=== PATIENT | male | born 1990 | race Caucasian/White ===

== ENCOUNTER 2016-09-30 20:51 | Emergency (ER) | payer SELFPAY ==
[2016-09-30 21:04] VITALS: BP 128/84
--- NOTE | 2016-09-30 21:40 | UC ---
Abdominal Pain Male HPI - HPI Summary HPI Summary: 5 days of abd pain ---nausea/vomiting/ feels dehydrated - History of Current Complaint Hx Obtained From: Patient Onset/Duration: Sudden Onset, Lasting Days - 5, Still Present Timing: Constant Severity Initially: Moderate Severity Currently: Moderate Pain Intensity: 7 Pain Scale Used: 0-10 Numeric Location: Diffuse, Discrete At: RUQ Radiates: No Character: Colicy, Cramping Alleviating Factor(s): Nothing Associated Signs And Symptoms: Positive: Diaphoresis, Decreased Appetite, Nausea , Vomiting <Dyan Mendez - Last Filed: 09/30/16 21:35> <Lolis Hawkins - Last Filed: 10/01/16 09:42> - History of Current Complaint Chief Complaint: UCGU Stated Complaint: NAUSEA VOMITING HURTS TO VOID Time Seen by Provider: 09/30/16 21:22 - Allergies/Home Medications Allergies/Adverse Reactions: Allergies Allergy/AdvReac Type Severity Reaction Status Date / Time No Known Allergies Allergy Verified 09/30/16 21:59 PMH/Surg Hx/FS Hx/Imm Hx Previously Healthy: Yes - Surgical History Surgical History: None - Family History Known Family History: Positive: Diabetes - grandfather - Social History Occupation: Unemployed Lives: With Family Alcohol Use: None Substance Use Type: Marijuana Substance Use Comment - Amount & Last Used: weekly Smoking Status (MU): Heavy Every Day Tobacco Smoker Household Exposure Type: Cigarettes <Dyan Mendez - Last Filed: 09/30/16 21:35> Review of Systems Constitutional: Chills, Fatigue Skin: Negative Eyes: Negative ENT: Negative Respiratory: Negative Cardiovascular: Negative Gastrointestinal: Abdominal Pain, Vomiting, Nausea Genitourinary: Dysuria Motor: Negative Neurovascular: Negative Musculoskeletal: Negative Neurological: Negative Psychological: Negative All Other Systems Reviewed And Are Negative: Yes <Dyan Mendez - Last Filed: 09/30/16 21:35> Physical Exam Triage Information Reviewed: Yes Appearance: Well-Nourished, Ill-Appearing - pale clammy skin, Pain Distress Vital Signs: Initial Vital Signs Temp 98.4 F 09/30/16 21:01 Pulse 90 09/30/16 21:01 Resp 18 09/30/16 21:01 BP 128/84 09/30/16 21:01 Pulse Ox 99 09/30/16 21:01 Vital Signs Reviewed: Yes Eye Exam: Normal Eyes: Positive: Conjunctiva Clear ENT Exam: Normal ENT: Positive: Normal ENT inspection, Hearing grossly normal, Pharynx normal. Negative: Nasal congestion, Nasal drainage, Trismus, Muffled/hoarse voice Dental Exam: Normal Neck exam: Normal Neck: Positive: Supple, Nontender, No Lymphadenopathy Respiratory Exam: Normal Respiratory: Positive: Chest non-tender, Lungs clear, Normal breath sounds, No respiratory distress, No accessory muscle use Cardiovascular Exam: Normal Cardiovascular: Positive: RRR, No Murmur, Pulses Normal, Brisk Capillary Refill Abdominal Exam: Other Abdomen Description: Positive: No Organomegaly, Soft, Other: - positive [place] sign. Negative: CVA Tenderness (R), CVA Tenderness (L) Bowel Sounds: Positive: Present Musculoskeletal Exam: Normal Musculoskeletal: Positive: Strength Intact, ROM Intact, No Edema Neurological Exam: Normal Neurological: Positive: Alert, Muscle Tone Normal Psychological Exam: Normal Psychological: Positive: Normal Response To Family Skin Exam: Normal Skin: Positive: Other <Dyan Mendez - Last Filed: 09/30/16 21:35> Vital Signs: Initial Vital Signs Temp 98.4 F 09/30/16 21:01 Pulse 90 09/30/16 21:01 Resp 18 09/30/16 21:01 BP 128/84 09/30/16 21:01 Pulse Ox 99 09/30/16 21:01 <Lolis Hawkins - Last Filed: 10/01/16 09:42> Diagnostics - Laboratory Diagnostic Studies Completed/Ordered: urine +3 ketones, +2 Bili, +1 Protien <Dyan Mendez - Last Filed: 09/30/16 21:35> Abd Pain Male Course/Dx - Course Course Of Treatment: [place] [facility] [place] Differential Dx/Clinical Impression Differential Diagnosis/HQI/PQRI: Appendicitis, Gall Bladder Disease, Ischemic Bowel, Pancreatitis Provider Diagnoses: abd. Pain - Physician Notification/Consults Discussed Patient Care With: Hemanth Contreras Time Discussed With Above Provider: 21:30 Instructed by Provider To: Transfer <Dyan Mendez - Last Filed: 09/30/16 21:35> Discharge <Dyan Mendez - Last Filed: 09/30/16 21:35> <Lolis Hawkins - Last Filed: 10/01/16 09:42> - Discharge Plan Condition: Fair Disposition: AGAINST MEDICAL ADVICE Referrals: No Primary Care Phys,NOPCP [Primary Care Provider] - Attestation Statement User Type: Provider - I was available for consult. This patient was seen by the [facility]. The patient was not presented to, seen by, or examined by me. -Roe <Lolis Hawkins - Last Filed: 10/01/16 09:42>
== END 2016-09-30 21:37 | disposition left against medical advice (07) ==
LOC: UCEAST 20:51
DX: R10.9 Unspecified abdominal pain (principal); Z72.0 Tobacco use
CPT/HCPCS: 81003; 99212; G0463

== ENCOUNTER 2016-09-30 21:53 | Emergency (ER) | payer SELFPAY ==
[2016-09-30] MEDS ORDERED: Ondansetron INJ* 2 MG/ML VIAL IV ONE (22:42)
[2016-09-30] MEDS ORDERED: NS 0.9% 1000 ML* 1,000 ML IV ONE (22:42)
[2016-09-30 23:16] LABS: Hematocrit 43 % (42-52); Hemoglobin 14.8 g/dl (14.0-18.0); Mean Corpuscular HGB Conc 34 g/dl (31-36); Mean Corpuscular Hemoglobin 31 pg (27-31); Mean Corpuscular Volume 91 fL (80-94); Mean Platelet Volume 9 um3 (7.4-10.4); Red Blood Count 4.77 10^6/ul (4.0-5.4); Red Cell Distribution Width 13 % (10.5-15); White Blood Count 10.2 10^3/ul (3.5-10.8)
[2016-09-30 23:20] LABS: Urine Bacteria Absent (Absent); Urine Bilirubin Negative (Negative); Urine Glucose Negative (Negative); Urine Nitrite Negative (Negative)
[2016-09-30 23:31] LABS: EGFR African American 133.3 (>60); EGFR Non-African American 103.7 (>60); Globulin 3.4 g/dL (2-4); Potassium 3.3 mmol/L (3.5-5.0); Total Bilirubin 0.9 mg/dL (0.2-1.0); Total Protein 8.4 g/dL (6.4-8.9)
[2016-10-01] MEDS ORDERED: Ondansetron ODT TAB* 4 MG PO ONE (00:49)
--- NOTE | 2016-10-01 00:49 | ED ---
GI/ HPI - HPI Summary HPI Summary: 25M presents with nausea and vomiting for 5 days. He states today he started to notice pain with urination. He also admits to feeling dehydrated. He states that what he describes as a need to throw up type pain in his epigastric region. He admits to occasionally diarrhea. He denies any flank pain or fever. He admits to increase frequency. He does not have a history of UTIs. He denies any previous abdominal surgeries. He admits to a decrease in appetite. He denies eating anything different or anyone else being sick. - History of Current Complaint Chief Complaint: EDAbdPain Time Seen by Provider: 09/30/16 22:32 Stated Complaint: NAUSEA,VOMITING,BURNING URINATION-SENT FROM [facility] Pain Intensity: 5 - Allergy/Home Medications Allergies/Adverse Reactions: Allergies Allergy/AdvReac Type Severity Reaction Status Date / Time No Known Allergies Allergy Verified 09/30/16 21:59 PMH/Surg Hx/FS Hx/Imm Hx Endocrine/Hematology History: Reports: Other Endocrine/Hematological Disorders - Psoriasis Denies: Hx Diabetes Cardiovascular History: Denies: Hx Hypertension Sensory History: Reports: Hx Contacts or Glasses Opthamlomology History: Reports: Hx Contacts or Glasses Infectious Disease History: No Infectious Disease History: Denies: Traveled Outside the [place] in Last 30 Days - Family History Known Family History: Positive: Diabetes - grandfather - Social History Alcohol Use: None Substance Use Type: Reports: Marijuana Substance Use Comment - Amount & Last Used: weekly Hx Tobacco Use: Yes Smoking Status (MU): Heavy Every Day Tobacco Smoker Review of Systems Negative: Fever Negative: Chest Pain Negative: Shortness Of Breath Positive: Abdominal Pain, Vomiting, Diarrhea, Nausea All Other Systems Reviewed And Are Negative: Yes Physical Exam Triage Information Reviewed: Yes Vital Signs On Initial Exam: Initial Vitals Temp Pulse Resp BP Pulse Ox 97.8 F 93 16 141/85 98 09/30/16 22:00 09/30/16 22:00 09/30/16 22:00 09/30/16 22:00 09/30/16 22:00 Vital Signs Reviewed: Yes Appearance: Positive: Well-Appearing Skin: Positive: Warm, Dry Head/Face: Positive: Normal Head/Face Inspection Eyes: Positive: Normal, Conjunctiva Clear ENT: Positive: Normal ENT inspection, Pharynx normal, TMs normal Respiratory/Lung Sounds: Positive: Clear to Auscultation, Breath Sounds Present Cardiovascular: Positive: Normal, RRR Abdomen Description: Positive: Soft, Other: - tender in RUQ. pos camacho Bowel Sounds: Positive: Present Diagnostics - Vital Signs Vital Signs Temp Pulse Resp BP Pulse Ox 10/01/16 00:01 76 133/82 97 09/30/16 23:15 80 98 09/30/16 23:12 126/92 09/30/16 22:45 98.4 F 75 16 126/99 100 09/30/16 22:00 97.8 F 93 16 141/85 98 - Laboratory Lab Results: Lab Results 09/30/16 09/30/16 09/30/16 Range/Units 23:00 23:00 23:00 WBC 10.2 (3.5-10.8) 10^3/ul RBC 4.77 (4.0-5.4) 10^6/ul Hgb 14.8 (14.0-18.0) g/dl Hct 43 (42-52) % MCV 91 (80-94) fL MCH 31 (27-31) pg MCHC 34 (31-36) g/dl RDW 13 (10.5-15) % Plt Count 320 (150-450) 10^3/ul MPV 9 (7.4-10.4) um3 Neut % (Auto) 68.1 (38-83) % Lymph % (Auto) 19.4 L (25-47) % [place] % (Auto) 11.4 H (1-9) % Eos % (Auto) 0.7 (0-6) % Baso % (Auto) 0.4 (0-2) % Absolute Neuts (auto) 6.9 (1.5-7.7) 10^3/ul Absolute Lymphs (auto) 2.0 (1.0-4.8) 10^3/ul Absolute Monos (auto) 1.2 H (0-0.8) 10^3/ul Absolute Eos (auto) 0.1 (0-0.6) 10^3/ul Absolute Basos (auto) 0 (0-0.2) 10^3/ul Absolute Nucleated RBC 0.01 10^3/ul Nucleated RBC % 0.1 Sodium 136 (133-145) mmol/L Potassium 3.3 L (3.5-5.0) mmol/L Chloride 104 (101-111) mmol/L Carbon Dioxide 21 L (22-32) mmol/L Anion Gap 11 (2-11) mmol/L BUN 9 (6-24) mg/dL Creatinine 0.90 (0.67-1.17) mg/dL Est GFR ( Amer) 133.3 (>60) Est GFR (Non-Af Amer) 103.7 (>60) BUN/Creatinine Ratio 10.0 (8-20) Glucose 86 (70-100) mg/dL Calcium 10.0 (8.6-10.3) mg/dL Total Bilirubin 0.90 (0.2-1.0) mg/dL AST 15 (13-39) U/L ALT 16 (7-52) U/L Alkaline Phosphatase 114 H (34-104) U/L C-React Prot High Sens 10.60 mg/L Total Protein 8.4 (6.4-8.9) g/dL Albumin 5.0 (3.2-5.2) g/dL Globulin 3.4 (2-4) g/dL Albumin/Globulin Ratio 1.5 (1-3) Lipase 33 (11.0-82.0) U/L Urine Color Yellow Urine Appearance Clear Urine pH 6.0 (5-9) Ur Specific [place] 1.006 L (1.010-1.030) Urine Protein Negative (Negative) Urine Ketones 1+ H (Negative) Urine Blood Negative (Negative) Urine Nitrate Negative (Negative) Urine Bilirubin Negative (Negative) Urine Urobilinogen Negative (Negative) Ur Leukocyte Esterase Trace H (Negative) Urine WBC (Auto) Trace(0-5/hpf) (Absent) Urine RBC (Auto) 1+(3-5/hpf) H (Absent) Ur Squamous Epith Cells Present H (Absent) Urine Bacteria Absent (Absent) Urine Glucose Negative (Negative) Result Diagrams: 09/30/16 23:00 09/30/16 23:00 Lab Statement: Any lab studies that have been ordered have been reviewed, and results considered in the medical decision making process. - Ultrasound No standard instances Ultrasound Interpretation: No Acute Changes - borderline hepatomegaly. gallbladder unremarkable Ultrasound Interpretation Completed By: Radiologist DOMINIQUE Course/Dx - Course Course Of Treatment: 25M presents with nausea and vomiting for 5 days. He states today he started to notice pain with urination. He also admits to feeling dehydrated. He states that what he describes as a need to throw up type pain in his epigastric region. He admits to occasionally diarrhea. He denies any flank pain or fever. He admits to increase frequency. on exam tender in RUQ. gallbladder u/s normal. labs wbc normal. u/a postive leuk and with burning with urination will treat as UTI although may be contaminate. explained symptoms likely due to gastroenteritis but could be gerd related. told to est care with primary to follow up. patient understands and agrees with plan - Diagnoses Differential Diagnoses - Male: Gall Bladder Disease, Gastroenteritis (Bacterial) , Gastroenteritis (Viral), Ureteral Calculi, Urinary Tract Infection, Vomiting Provider Diagnoses: UTI (urinary tract infection), Abdominal pain, Nausea & vomiting Discharge - Discharge Plan Condition: Good Disposition: HOME Prescriptions: Ciprofloxacin TAB* [Cipro 500 MG TAB*] 500 mg PO BID #13 tab Ondansetron ODT TAB* [Zofran 4 MG Odt TAB*] 4 mg PO Q6H PRN #20 tab.odt PRN Reason: Nausea Patient Education Materials: Urinary Tract Infection in Men (ED) Referrals: [facility] [place] [facility]IAN REFERRAL [Outside] Additional Instructions: Take cipro twice a day for 7 days Take zofran every 6 hours for nausea as needed Drink small amounts of fluid as tolerated When able to eat follow BRAT diet: Bananas, rice, applesauce, toast Take ibuprofen or Tylenol for pain as needed every 6 hours Establish care with primary to follow up with Return to ED if develop any new or worsening symptoms
[2016-10-01] MEDS ORDERED: Ciprofloxacin TAB* 500 MG PO ONE (00:50)
[2016-10-01 01:25] VITALS: BP 117/84
--- NOTE | 2016-10-01 07:39 | RAD ---
INDICATION: Right upper quadrant pain. COMPARISON: There are no prior studies available for comparison. TECHNIQUE: Multiple real-time images of the right upper quadrant were obtained. FINDINGS: The gallbladder appear normal. No gallbladder wall thickening or pericholecystic fluid is present. No intra or extrahepatic ductal distention is present. The common bile duct measured 0.4 cm in diameter. The liver is normal in size without significant focal abnormality. The pancreas is partially obscured by overlying bowel gas. The right kidney is normal in size without evidence for hydronephrosis. IMPRESSION: NEGATIVE EXAM.
== END 2016-10-01 01:32 | disposition home or self-care (01) ==
LOC: ED 21:53
DX: N39.0 Urinary tract infection, site not specified (principal); R10.13 Epigastric pain; R11.2 Nausea with vomiting, unspecified; F12.90 Cannabis use, unspecified, uncomplicated; Z72.0 Tobacco use
CPT/HCPCS: 36415; 76705; 80053; 81003; 81015; 83690; 85025; 86141; 87086; 96361; 96374; 99283; A9270-GY; J2405

== ENCOUNTER 2017-07-09 13:59 | Emergency (ER) | payer BC, OTHER ==
[2017-07-09] MEDS ORDERED: Ibuprofen TAB* 600 MG PO ONE (15:44)
--- NOTE | 2017-07-09 16:16 | RAD ---
LEFT ankle radiographs: Indication: LEFT ankle pain for a few weeks with intermittent inability to bear weight. Comparison: No relevant prior exams available on the [facility] for comparison. Technique: AP, mortise, and lateral views LEFT ankle. Report: Mild nonfocal soft tissue swelling about the ankle. Negative for fracture, osteochondral lesion, or focal osseous lesions. Preserved joint spaces. IMPRESSION: Mild nonfocal soft tissue swelling at the LEFT ankle without additional radiographic abnormality. LEFT hip radiographs: Indication: LEFT hip pain without known injury. Comparison: No relevant prior exams available on the [facility] for comparison. Technique: AP pelvis and AP and frog-leg lateral views LEFT hip. Report: The LEFT hip is normally located. No LEFT proximal femur or pelvic fracture or pelvic joint diastases. Bilateral acetabular crossover sign consistent with cranial acetabular retroversion. Small bone island at the LEFT acetabular roof. Unremarkable soft tissue contours. 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 Correlate for potential decreased range of motion at the hips.
--- NOTE | 2017-07-09 16:16 | RAD ---
LEFT ankle radiographs: Indication: LEFT ankle pain for a few weeks with intermittent inability to bear weight. Comparison: No relevant prior exams available [place] [facility] [place]. Technique: AP, mortise, and lateral views LEFT ankle. Report: Mild nonfocal soft tissue swelling about the ankle. Negative for fracture, osteochondral lesion, or focal osseous lesions. Preserved joint spaces. IMPRESSION: Mild nonfocal soft tissue swelling at the LEFT ankle without additional radiographic abnormality. LEFT hip radiographs: Indication: LEFT hip pain without known injury. Comparison: No relevant prior exams available [place] [facility] [place]. Technique: AP pelvis and AP and frog-leg lateral views LEFT hip. Report: The LEFT hip is normally located. No LEFT proximal femur or pelvic fracture or pelvic joint diastases. Bilateral acetabular crossover sign consistent with cranial acetabular retroversion. Small bone island at the LEFT acetabular roof. Unremarkable soft tissue contours. 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 Correlate for potential decreased range of motion at the hips.
--- NOTE | 2017-07-09 17:21 | ED ---
Estuardo Cruz Stephanie, scribed for Durga Kamara on 07/09/17 at 1547 . Lower Extremity - HPI Summary HPI Summary: The pt is a 26 y/o M presenting to the ED with c/o L ankle pain that began 4 weeks ago. Symptoms include L hip pain. The L ankle is unable to bear weight. - History of Current Complaint Chief Complaint: EDExtremityLower Stated Complaint: HIP/LT ANKLE PAIN Time Seen by Provider: 07/09/17 15:29 Hx Obtained From: Patient Mechanism Of Injury: Unknown Onset/Duration: Weeks - 4 Severity Currently: Mild Pain Intensity: 5 Pain Scale Used: 0-10 Numeric Timing: Constant Location: Is Discrete @ - L ankle Associated Signs And Symptoms: Positive: Swelling - L ankle, Other - L hip pain Aggravating Factor(s): Ambulation Alleviating Factor(s): Rest Able to Bear Weight: No - Allergies/Home Medications Allergies/Adverse Reactions: Allergies Allergy/AdvReac Type Severity Reaction Status Date / Time No Known Allergies Allergy Verified 07/09/17 14:05 PMH/Surg Hx/FS Hx/Imm Hx Endocrine/Hematology History: Reports: Other Endocrine/Hematological Disorders - Psoriasis Denies: Hx Diabetes Cardiovascular History: Denies: Hx Hypertension Sensory History: Reports: Hx Contacts or Glasses Opthamlomology History: Reports: Hx Contacts or Glasses - Surgical History Surgery Procedure, Year, and Place: NONE Infectious Disease History: No Infectious Disease History: Denies: Traveled Outside the [place] in Last 30 Days - Family History Known Family History: Positive: Diabetes - grandfather - Social History Occupation: Employed Full-time Lives: Alone Alcohol Use: None Hx Substance Use: Yes Substance Use Type: Reports: Marijuana Substance Use Comment - Amount & Last Used: daily Hx Tobacco Use: Yes Smoking Status (MU): Heavy Every Day Tobacco Smoker Have You Smoked in the Last Year: Yes Review of Systems Negative: Fever Positive: Other - L ankle pain, L hip pain Negative: Slurred Speech All Other Systems Reviewed And Are Negative: Yes Physical Exam - Summary Physical Exam Summary: Appearance: Well appearing, no pain distress Skin: warm, dry, reflects adequate perfusion Head/face: normal Eyes: EOMI, RENALDO ENT: normal Neck: supple, non-tender Respiratory: CTA, breath sounds present Cardiovascular: RRR, pulses symmetrical Abdomen: non-tender, soft Bowel: present Musculoskeletal: strength/ROM intact, tenderness over L ankle mind swelling, tenderness over L hip Neuro: normal, sensory motor intact, A&Ox3, no neurological deficit Triage Information Reviewed: Yes Vital Signs On Initial Exam: Initial Vitals Temp Pulse Resp BP Pulse Ox 98 F 84 16 131/76 98 07/09/17 14:02 07/09/17 14:02 07/09/17 14:02 07/09/17 14:02 07/09/17 14:02 Vital Signs Reviewed: Yes Diagnostics - Vital Signs Vital Signs Temp Pulse Resp BP Pulse Ox 07/09/17 14:02 98 F 84 16 131/76 98 - Laboratory Lab Statement: Any lab studies that have been ordered have been reviewed, and results considered in the medical decision making process. 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 Correlate for potential decreased range of motion at the hips. ED physician has reviewed this report. 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 Correlate for potential decreased range of motion at the hips. ED physician has reviewed this report. Re-Evaluation - Re-Evaluation First Eval Re-Evaluation Time: 16:51 Change: Unchanged - ED physician discussed plan of discharge with the pt and the pt agrees and understands. Lower Extremity Course/Dx - Course Course Of Treatment: The pt is a 26 y/o M presenting to the ED with c/o L ankle pain that began 4 weeks ago. Symptoms include L hip pain. The L ankle is unable to bear. Imaging is negative. ED physician recommended the pt to follow up with orthopedics. - Diagnoses Differential Diagnosis/HQI/PQRI: Positive: Contusion, Fracture (Closed), Sprain Provider Diagnoses: Ankle sprain, Hip pain Discharge - Sign-Out/Discharge Documenting (check all that apply): Discharge/Admit/Transfer - discharge - Discharge Plan Condition: Stable Disposition: HOME Prescriptions: Ibuprofen TAB* [Motrin TAB* 600 MG] 600 mg PO Q8H PRN #20 tab MDD 3 PRN Reason: Pain Patient Education Materials: Ankle Sprain (ED), Hip Pain (ED) Referrals: Yadiel Gr MD [Medical Doctor] - 2 Days Additional Instructions: Return to the ED for new or worsening symptoms. - Billing Disposition and Condition Condition: STABLE Disposition: HOME The documentation as recorded by the Estuardo ascencio Stephanie accurately reflects the service I personally performed and the decisions made by , Durga Kamara.
[2017-07-09 17:22] VITALS: BP 00/0
== END 2017-07-09 17:20 | disposition home or self-care (01) ==
LOC: ED 13:59
DX: S93.402A Sprain of unspecified ligament of left ankle, initial encounter (principal); M25.552 Pain in left hip; X58.XXXA Exposure to other specified factors, initial encounter; Y92.9 Unspecified place or not applicable; Z72.0 Tobacco use
CPT/HCPCS: 99282; A9270-GY

== ENCOUNTER 2017-08-09 10:34 | Emergency (ER) | payer OTHER ==
[2017-08-09 11:02] VITALS: BP 117/71
--- NOTE | 2017-08-09 11:53 | UC ---
Throat Pain/Nasal [place] HPI - HPI Summary HPI Summary: 26 yo male presents with sinus pain/pressure/congestion and a dry cough for 1 week. Yesterday began with a sore throat and white spots in the back of his throat. [place] feverish last night. Has not taken anything OTC. Denies chills, SOB , chest pain, abdominal pain, n/v. - History of Current Complaint Chief Complaint: UCGeneralIllness Stated Complaint: SORE THROAT Time Seen by Provider: 08/09/17 11:53 Hx Obtained From: Patient Onset/Duration: Gradual Onset Severity: Moderate Pain Intensity: 5 Pain Scale Used: 0-10 Numeric - Allergies/Home Medications Allergies/Adverse Reactions: Allergies Allergy/AdvReac Type Severity Reaction Status Date / Time No Known Allergies Allergy Verified 08/09/17 10:56 Home Medications: Home Medications Ibuprofen TAB* [Advil TAB*] 600 mg PO Q6H PRN 08/09/17 [History Confirmed ] Turmeric Root Extract [Ra Turmeric] 1,000 mg PO DAILY 08/09/17 [History Confirmed 08/09/17] PMH/Surg Hx/FS Hx/Imm Hx - Additional Past Medical History Additional PMH: Eczema Previously Healthy: Yes - Surgical History Surgical History: None Surgery Procedure, Year, and Place: NONE - Family History Known Family History: Positive: Diabetes - grandfather - Social History Occupation: Employed Full-time Lives: With Family Alcohol Use: None Substance Use Type: Marijuana Substance Use Comment - Amount & Last Used: twice daily Smoking Status (MU): Heavy Every Day Tobacco Smoker Amount Used/How Often: 3/4 PPD Length of Time of Smoking/Using Tobacco: Since Age 19 Have You Smoked in the Last Year: Yes Household Exposure Type: Cigarettes Review of Systems Constitutional: Fever Skin: Negative Eyes: Negative ENT: Sore Throat, Sinus Congestion Respiratory: Cough Cardiovascular: Negative Gastrointestinal: Negative Neurovascular: Negative Neurological: Negative Psychological: Negative All Other Systems Reviewed And Are Negative: Yes Physical Exam - Summary Physical Exam Summary: GENERAL: NAD. Mildly ill appearing SKIN: No rashes or open wounds. HEENT: Head: AT/NC Eyes: Conjunctiva clear without inflammation or discharge. Ears: Hearing grossly normal. TMs intact, no bulging, erythema, or edema. Nose: Nasal mucosa pink and moist. NTTP maxillary and frontal sinus. Throat: Posterior oropharynx moderate erythema and 2+ tonsillar enlargement. Moderate exudates L>R. Uvula midline. No hoarse voice or muffled voice. NECK: Supple. Left tonsillar LAD mild TTP. CHEST: CTAB. No r/r/w. No accessory muscle use. Breathing comfortably and in no distress. CV: RRR. Without m/r/g. Pulses intact. Brisk cap refill. NEURO: Alert. CN II-XII grossly intact. PSYCH: Age appropriate behavior. Triage Information Reviewed: Yes Vital Signs: Initial Vital Signs Temp 98.1 F 08/09/17 10:53 Pulse 84 08/09/17 10:53 Resp 16 08/09/17 10:53 BP 117/71 08/09/17 10:53 Pulse Ox 100 08/09/17 10:53 Throat Pain/Nasal Course/Dx - Course Course Of Treatment: POC strep positive. - Differential Dx/Diagnosis Provider Diagnoses: Strep pharyngitis Discharge - Sign-Out/Discharge Documenting (check all that apply): Discharge/Admit/Transfer - Discharge Plan Condition: Stable Disposition: HOME Prescriptions: Amoxicillin/Clavulanate TAB* [Augmentin TAB 875*] 875 mg PO BID #20 tab Patient Education Materials: Strep Throat (DC) Referrals: No Primary Care Phys,NOPCP [Primary Care Provider] - Additional Instructions: If you develop a fever, shortness of breath, chest pain, new or worsening symptoms - please call your PCP or go to the ED. - Billing Disposition and Condition Condition: STABLE Disposition: HOME
== END 2017-08-09 12:19 | disposition home or self-care (01) ==
LOC: UCCORT 10:34
DX: J02.0 Streptococcal pharyngitis (principal)
CPT/HCPCS: 87651; 99212; G0463

== ENCOUNTER 2018-04-01 16:34 | Emergency (ER) | payer SELFPAY ==
[2018-04-01] MEDS ORDERED: Ketorolac INJ* 60 MG/2 ML VIAL IM ONE (17:29)
[2018-04-01] MEDS ORDERED: Amoxicillin PO (*) 875 MG TAB PO ONE (17:29)
--- NOTE | 2018-04-01 17:33 | ED ---
Complex/Multi-Sys Presentation - HPI Summary HPI Summary: Patient is a 27 y/o M presenting to ED with complaints of abscess to 18th tooth. He states that Sx onset a week ago, patient has not seen dentist yet. Patient notes that pain is worse when he is at work or trying to relax at home. He states that entire left jaw will go numb as well. He denies PMHx, PSHx. Patient smokes cigarettes, denies alc usage. On triage, pain is denied, nothing is noted to aggravate/alleviate Sx. Home medications and allergies are reviewed. - History Of Current Complaint Chief Complaint: EDDentalPain Time Seen by Provider: 04/01/18 17:23 Hx Obtained From: Patient Onset/Duration: Lasting Weeks - 1, Still Present Timing: Constant, Weeks - 1 Severity Currently: None - pain denied on triage Location: Pain At: - 18th tooth Aggravating Factor(s): worse when he is at work or trying to relax at home Alleviating Factor(s): nothing Associated Signs And Symptoms: Positive: Other - POSITIVE - 18TH TOOTH PAIN, LEFT JAW NUMBNESS - Allergies/Home Medications Allergies/Adverse Reactions: Allergies Allergy/AdvReac Type Severity Reaction Status Date / Time No Known Allergies Allergy Verified 08/09/17 10:56 PMH/Surg Hx/FS Hx/Imm Hx Endocrine/Hematology History: Reports: Other Endocrine/Hematological Disorders - Psoriasis Denies: Hx Diabetes Cardiovascular History: Denies: Hx Hypertension Sensory History: Reports: Hx Contacts or Glasses Opthamlomology History: Reports: Hx Contacts or Glasses - Surgical History Surgery Procedure, Year, and Place: NONE Infectious Disease History: No Infectious Disease History: Denies: Traveled Outside the [place] in Last 30 Days - Family History Known Family History: Positive: Diabetes - grandfather - Social History Alcohol Use: None Hx Substance Use: Yes Substance Use Type: Reports: Marijuana Substance Use Comment - Amount & Last Used: twice daily Hx Tobacco Use: Yes Smoking Status (MU): Heavy Every Day Tobacco Smoker Amount Used/How Often: 3/4 PPD Length of Time of Smoking/Using Tobacco: Since Age 19 Have You Smoked in the Last Year: Yes Review of Systems Positive: Other - POSITIVE - 18TH TOOTH PAIN Positive: Numbness - LEFT JAW All Other Systems Reviewed And Are Negative: Yes Physical Exam - Summary Physical Exam Summary: VITAL SIGNS: Reviewed. GENERAL: Patient is a well-developed and nourished male who is lying comfortable in the stretcher. Patient is not in any acute respiratory distress. HEAD AND FACE: No signs of trauma. No ecchymosis, hematomas or skull depressions. No sinus tenderness. EYES: PERRLA, EOMI x 2, No injected conjunctiva, no nystagmus. EARS: Hearing grossly intact. Ear canals and tympanic membranes are within normal limits. MOUTH: Oropharynx within normal limits. 18th tooth has a cap, which is where the abscess is located. However, there is no swelling of tongue, lips, gums. Airway is clear. NECK: Supple, trachea is midline, no adenopathy, no JVD, no carotid bruit, no c- spine tenderness, neck with full ROM. CHEST: Symmetric, no tenderness at palpation LUNGS: Clear to auscultation bilaterally. No wheezing or crackles. CVS: Regular rate and rhythm, S1 and S2 present, no murmurs or gallops appreciated. ABDOMEN: Soft, non-tender. No signs of distention. No rebound no guarding, and no masses palpated. Bowel sounds are normal. EXTREMITIES: FROM in all major joints, no edema, no cyanosis or clubbing. NEURO: Alert and oriented x 3. No acute neurological deficits. Speech is normal and follows commands. SKIN: Dry and warm Triage Information Reviewed: Yes Vital Signs On Initial Exam: Initial Vitals Temp Pulse Resp BP Pulse Ox 98.7 F 91 18 140/92 98 04/01/18 16:42 04/01/18 16:42 04/01/18 16:42 04/01/18 16:42 04/01/18 16:42 Vital Signs Reviewed: Yes Diagnostics - Vital Signs Vital Signs Temp Pulse Resp BP Pulse Ox 04/01/18 16:42 98.7 F 91 18 140/92 98 - Laboratory Lab Statement: Any lab studies that have been ordered have been reviewed, and results considered in the medical decision making process. Complex Multi-Symp Course/Dx Assessment/Plan: Patient with dental pain and cavities. The patient was given Augmentin for the patient and Toradol for the pain. At this point the patient was discharged home with follow-up with the dentist in the PCP. Patient is hemodynamically stable alert and oriented 3. - Diagnoses Provider Diagnoses: Pain, dental Discharge - Sign-Out/Discharge Documenting (check all that apply): Patient Departure - discharge - Discharge Plan Condition: Stable Disposition: HOME Prescriptions: Amoxicillin/Clavulanate TAB* [Augmentin TAB 875*] 875 mg PO BID #20 tab Patient Education Materials: Toothache (ED) Referrals: [facility] [Outside] - 3 Days Additional Instructions: RETURN TO ED FOR ANY NEW OR WORSENING SYMPTOMS. FOLLOW UP WITH YOUR DENTIST IN 2 -3 DAYS - Attestation Statements Document Initiated by Scribe: Yes Documenting Scribe: SEVERO OBRIEN Provider For Whom Walter is Documenting (Include Credential): JUSTICE BLANCO MD Scribe Attestation: SEVERO Cruz , scribed for JUSTICE BLANCO MD on 04/01/18 at 1902. Status of Scribe Document: Ready
[2018-04-01 17:58] VITALS: BP 136/89
== END 2018-04-01 17:58 | disposition home or self-care (01) ==
LOC: ED 16:34
DX: K08.89 Other specified disorders of teeth and supporting structures (principal); F17.210 Nicotine dependence, cigarettes, uncomplicated
CPT/HCPCS: 96372; 99282; J1885

== ENCOUNTER → 2018-07-01 14:26 | Emergency (ER) | payer SELFPAY ==
[2018-07-01 15:40] LABS: ABS Basophils 0.1 10^3/ul (0-0.2); ABS Eosinophils 0.1 10^3/ul (0-0.6); ABS Lymphocytes 1.6 10^3/ul (1.0-4.8); ABS Monocytes 0.8 10^3/ul (0-0.8); ABS Neutrophils 8.5 10^3/ul (1.5-7.7); ABS Nucleated RBC 0 10^3/ul; Eosinophil % 0.6 %; Hematocrit 37 % (36-46); Hemoglobin 12.4 g/dL (14.0-18.0); Lymphocyte % 14.5 %; Mean Corpuscular HGB Conc 34 g/dL (31-36); Mean Corpuscular Hemoglobin 30 pg (27-31); Mean Corpuscular Volume 89 fL (80-94); Mean Platelet Volume 7.4 fL (7.4-10.4); Nucleated Red Blood Cells % 0; Platelet Count 490 10^3/uL (150-450); Red Blood Count 4.12 10^6 /uL (4.18-5.48); Red Cell Distribution Width 13 % (10.5-15); White Blood Count 11.1 10^3/uL (3.5-10.8)
--- NOTE | 2018-07-01 15:43 | ED ---
GI/ HPI - HPI Summary HPI Summary: Patient was seen in the sub-waiting room. This patient is a 27 year old M brought in by his cousins to [facility] with a chief complaint of intermittent left testicular pain radiating to his left groin since 2 days ago, worsening today. The patient rates the pain 6/10 in severity currently, 8/10 at its worst. Symptoms aggravated by standing. Symptoms alleviated by sitting. Patient reports a retracted left testicle, as it is a lot further up than it usually is. Patient denies pain when urinating and a mass on testicles. Patient took 1000 mg of acetaminophen around 12:00 today. He has not done any heavy lifting recently. Patient has no allergies and takes no daily medications. He says that he can arrange for a ride afterwards. PMHx of psoriasis. No PMHx of issues like hydrocele, varicocele, or prostatitis. No PMHx of testicular cancer, mass on testicles, STI, hernia, asthma, or diabetes. No PSHx. FHx of psoriasis but no FHx of testicular cancer. Home Medications Medication Instructions Recorded Confirmed Type Ibuprofen TAB* [Advil TAB*] 600 mg PO Q6H PRN 08/09/17 07/01/18 History Turmeric Root Extract [Ra Turmeric] 1,000 mg PO DAILY 08/09/17 07/01/18 History - History of Current Complaint Chief Complaint: EDUrogenitalProblems Time Seen by Provider: 07/01/18 15:30 Stated Complaint: LEFT TESTICLE PAIN PER PT Hx Obtained From: Patient Onset/Duration: Started Days Ago, Still Present Timing: Intermittent Current Severity: Moderate Pain Intensity: 6 Additional Locations for Males: Testicles - radiating to left groin Associated Signs and Symptoms: Positive: Other: - Retracted left testicle. Denies pain with urination and feeling a mass on his testicles. - Allergy/Home Medications Allergies/Adverse Reactions: Allergies Allergy/AdvReac Type Severity Reaction Status Date / Time No Known Allergies Allergy Verified 08/09/17 10:56 PMH/Surg Hx/FS Hx/Imm Hx Endocrine/Hematology History: Reports: Other Endocrine/Hematological Disorders - Psoriasis Denies: Hx Diabetes Cardiovascular History: Denies: Hx Hypertension GI History: Denies: Hx Hiatal Hernia History: Denies: Other Problems/Disorders Sensory History: Reports: Hx Contacts or Glasses Opthamlomology History: Reports: Hx Contacts or Glasses - Surgical History Surgery Procedure, Year, and Place: NONE Infectious Disease History: No Infectious Disease History: Denies: Traveled Outside the [place] in Last 30 Days - Family History Known Family History: Positive: Diabetes - grandfather - Social History Alcohol Use: None Hx Substance Use: Yes Substance Use Type: Reports: Marijuana Substance Use Comment - Amount & Last Used: twice daily Hx Tobacco Use: Yes Smoking Status (MU): Heavy Every Day Tobacco Smoker Amount Used/How Often: 3/4 PPD Length of Time of Smoking/Using Tobacco: Since Age 19 Have You Smoked in the Last Year: Yes Review of Systems Negative: Fever Positive: pain - Left testicular pain, radiating to his left groin., other - Retracted left testicle, as it is a lot further up than it usually is. Denies a mass on the testicles.. Negative: dysuria All Other Systems Reviewed And Are Negative: Yes Physical Exam - Summary Physical Exam Summary: Appearance: Ill-appearing, moderate pain distress, well-nourished Skin: Warm, color reflects adequate perfusion, dry Head: Normal Head/Face inspection, atraumatic Eyes: Conjunctiva clear ENT: Normal inspection Neck: Supple, no nodes, no JVD Respiratory: Lungs clear, normal breath sounds, no respiratory distress Cardio: RRR, No murmur, pulses normal, brisk capillary refill Abdomen: Soft, nontender Bowel sounds: Present Musculoskeletal: Strength Intact/ROM intact, no calf tenderness, no edema. Psychological: Normal Neuro: Alert, muscle tone normal, no focal deficit : Scrotum is red and he is tender at the tip of the testicle, but there is no mass. Triage Information Reviewed: Yes Vital Signs On Initial Exam: Initial Vitals Temp Pulse Resp BP Pulse Ox 99.0 F 77 19 118/78 98 07/01/18 14:36 07/01/18 14:36 07/01/18 14:36 07/01/18 14:36 07/01/18 14:36 Vital Signs Reviewed: Yes Diagnostics - Vital Signs Vital Signs Temp Pulse Resp BP Pulse Ox 07/01/18 14:36 99.0 F 77 19 118/78 98 - Laboratory Result Diagrams: 07/01/18 15:32 07/01/18 15:32 Lab Statement: Any lab studies that have been ordered have been reviewed, and results considered in the medical decision making process. - Ultrasound No standard instances Ultrasound Interpretation Completed By: Radiologist Summary of Ultrasound Findings: Testicular US 15:39. No hernias are noted. No evidence of intratesticular masses are noted. No evidence of torsion is noted. ED Physician has reviewed this imaging report. Re-Evaluation - Re-Evaluation 1 Re-Evaluation Time: 18:34 Comment: Patient reports that all his testicular pain has resolved and decided to leave AMA. He also refused to sign any paperwork. GIGU Course/Dx - Course Course Of Treatment: Patient was seen in the sub-waiting room. This patient is a 27 year old M brought in by cousins to [facility] with a chief complaint of intermittent left testicular pain radiating to his left groin, since 2 days ago , worsening today. A testicular US showed no acute processes. As I requested a consult from a urologist, the patient decided to leave AMA. He reported that his testicular pain had entirely resolved. - Critical Care Time Critical Care Time: 30-74 min Discharge - Sign-Out/Discharge Documenting (check all that apply): Patient Departure - AMA - Discharge Plan Condition: Stable Disposition: AGAINST MEDICAL ADVICE Referrals: No Primary Care Phys,NOPCP [Primary Care Provider] - - Attestation Statements Document Initiated by Scribe: Yes Documenting Scribe: John Zhang Provider For Whom Scribe is Documenting (Include Credential): Disha Bravo MD Scribe Attestation: John Cruz, scribed for Disha Bravo MD on 07/01/18 at 2231.
[2018-07-01 16:01] LABS: Albumin 4.8 g/dL (3.2-5.2); BUN/Creatinine Ratio 9.4 (8-20); EGFR African American 131.8 (>60); Potassium 4.2 mmol/L (3.5-5.0); Total Protein 8.3 g/dL (6.4-8.9)
[2018-07-01 16:02] LABS: Albumin/Globulin Ratio 1.4 (1-3); C Reactive Protein 28.89 mg/L (<8.01); Globulin 3.5 g/dL (2-4); Total Bilirubin 0.7 mg/dL (0.2-1.0)
[2018-07-01 16:17] LABS: Urine Appearance Clear; Urine Bilirubin Negative (Negative); Urine Blood Negative (Negative); Urine Color Yellow; Urine Glucose Negative (Negative); Urine Ketones Negative (Negative); Urine Nitrite Negative (Negative); Urine Protein Negative (Negative); Urine Specific Gravity 1.012 (1.010-1.030); Urine Urobilinogen Negative (Negative)
[2018-07-01 18:43] VITALS: BP 112/54
== END | disposition left against medical advice (07) ==
LOC: ED 14:26
DX: N50.812 Left testicular pain (principal); L40.9 Psoriasis, unspecified; F17.210 Nicotine dependence, cigarettes, uncomplicated; Z53.21 Procedure and treatment not carried out due to patient leaving prior to being seen by health care provider
CPT/HCPCS: 36415; 76870; 80053; 81003; 83605; 83690; 85025; 86140; 99283

== ENCOUNTER 2019-01-06 08:47 | Emergency (ER) | payer SELFPAY ==
[2019-01-06 08:51] VITALS: BP 137/89
[2019-01-06] MEDS ORDERED: HYDROcodone/ACETAMIN 5-325 MG* 1 TAB PO ONE (09:05)
[2019-01-06] MEDS ORDERED: predniSONE TAB* 20 MG PO ONE (09:05)
[2019-01-06] MEDS ORDERED: Lidocaine PATCH 5%* 1 PATCH TRANSDERM ONE (09:05)
[2019-01-06] MEDS ORDERED: Ketorolac *IM* INJ* 60 MG/2 ML VIAL IM ONE (09:05)
--- NOTE | 2019-01-06 09:08 | ED ---
Lower Extremity - HPI Summary HPI Summary: Pt is a 28 y/o M presenting to the ED for a chief complaint of left LE numbness originating from the left hip. Pt woke up the morning of 01/06/19 with severe pain from the left buttocks to the left LE and numbness of the left LE. Pt also admits diaphoresis and chills. Pt rates the current pain as 3/10, but was previously 6/10 on arrival to the ED. Pt denies any injuries or falls before his symptoms began. Pt took ibuprofen at 0300 without relief. Pt also admits occasional back pain, but none at this time. Pt denies any fever, erythema of eyes, sore throat, CP, SOB, cough, abdominal pain, N/V, dysuria, hematuria, urinary incontinence, saddle anesthesia, paresthesia of the bilateral LE, lower back pain at the present time, edema, rash, or dizziness. Pt has a PMHx of psoriatic arthritis in the bilateral LE and ankles. Pt denies any PSHx. Allergies noted. Pt works at [employer]. - History of Current Complaint Chief Complaint: EDHipPelvisInjury Stated Complaint: HIP PAIN LEG PAIN Time Seen by Provider: 01/06/19 08:58 Hx Obtained From: Patient Mechanism Of Injury: Other - None Onset of Pain: Immediate, Hours Onset/Duration: Still Present Severity Initially: Severe Severity Currently: Mild Pain Intensity: 3 Pain Scale Used: 0-10 Numeric Timing: Constant, Lasting Hours Location: Is Discrete @ - Left LE and left hip Associated Signs And Symptoms: Positive: Other - Left buttocks radiating to the left LE; left hip pain. Negative: Swelling, Dizziness Alleviating Factor(s): Nothing - No relief with ibuprofen Able to Bear Weight: Yes - Allergies/Home Medications Allergies/Adverse Reactions: Allergies Allergy/AdvReac Type Severity Reaction Status Date / Time No Known Allergies Allergy Verified 01/06/19 08:52 PMH/Surg Hx/FS Hx/Imm Hx Previously Healthy: Yes Endocrine/Hematology History: Reports: Other Endocrine/Hematological Disorders - Psoriasis Denies: Hx Diabetes Cardiovascular History: Denies: Hx Hypertension GI History: Denies: Hx Hiatal Hernia History: Denies: Other Problems/Disorders Sensory History: Reports: Hx Contacts or Glasses Denies: Hx Legally Blind Opthamlomology History: Reports: Hx Contacts or Glasses Denies: Hx Legally Blind EENT History: Denies: Hx Deafness - Surgical History Surgical History: None Surgery Procedure, Year, and Place: NONE Infectious Disease History: No Infectious Disease History: Denies: Traveled Outside the [place] in Last 30 Days - Family History Known Family History: Positive: Diabetes - grandfather - Social History Occupation: Employed Full-time Alcohol Use: None Hx Substance Use: Yes Substance Use Type: Reports: Marijuana Substance Use Comment - Amount & Last Used: twice daily Hx Tobacco Use: Yes Smoking Status (MU): Heavy Every Day Tobacco Smoker Amount Used/How Often: 3/4 PPD Length of Time of Smoking/Using Tobacco: Since Age 19 Have You Smoked in the Last Year: Yes Review of Systems Positive: Chills, Skin Diaphoresis. Negative: Fever Negative: Erythema Negative: Sore Throat Negative: Chest Pain Negative: Shortness Of Breath, Cough Negative: Abdominal Pain, Vomiting, Nausea Negative: dysuria, hematuria, incontinence - Urinary Positive: Arthralgia - Left hip, Myalgia - Positive left buttocks radiating down the left LE; negative lowe back pain at present time. Negative: Edema Neurological: Other - Negative saddle anesthesia or dizziness Positive: Numbness - Left buttocks radiating to the left LE. Negative: Paresthesia - Bilateral LE All Other Systems Reviewed And Are Negative: Yes Physical Exam - Summary Physical Exam Summary: Constitutional: Well-developed, Well-nourished, Alert. (-) Distressed Skin: Warm, Dry HENT: Normocephalic; Atraumatic Eyes: Conjunctiva normal Neck: Musculoskeletal ROM normal neck. (-) JVD, (-) Stridor, (-) Tracheal deviation Cardio: Rhythm regular, rate normal, Heart sounds normal; Intact distal pulses; The pedal pulses are 2+ and symmetric. Radial pulses are 2+ and symmetric. (-) Murmur Pulmonary/Chest wall: Effort normal. (-) Respiratory distress, (-) Wheezes, (-) Rales Abd: Soft, (-) tenderness, (-) Distension, (-) Guarding, (-) Rebound Musculoskeletal: (-) Edema. Positive cross leg raise on the right lateralizing to the left. Lymph: (-) Cervical adenopathy Neuro: Alert, Oriented x3 Psych: Mood and affect Normal Triage Information Reviewed: Yes Vital Signs On Initial Exam: Initial Vitals Temp Pulse Resp BP Pulse Ox 97.5 F 79 16 137/89 98 01/06/19 08:49 01/06/19 08:49 01/06/19 08:49 01/06/19 08:49 01/06/19 08:49 Vital Signs Reviewed: Yes Procedures - Sedation Patient Received Moderate/Deep Sedation with Procedure: No Diagnostics - Vital Signs Vital Signs Temp Pulse Resp BP Pulse Ox 01/06/19 08:49 97.5 F 79 16 137/89 98 - Laboratory Lab Statement: Any lab studies that have been ordered have been reviewed, and results considered in the medical decision making process. Lower Extremity Course/Dx - Course Course Of Treatment: Pt is a 28 y/o M presenting to the ED for a chief complaint of left LE numbness originating from the left hip. Pt woke up the morning of 01/06/19 with severe pain from the left buttocks to the left LE and numbness of the left LE. Pt also admits diaphoresis and chills. Pt rates the current pain as 3/10, but was previously 6/10 on arrival to the ED. Pt denies any injuries or falls before his symptoms began. Pt took ibuprofen at 0300 without relief. Pt also admits occasional back pain, but none at this time. Pt denies any fever, erythema of eyes, sore throat, CP, SOB, cough, abdominal pain , N/V, dysuria, hematuria, urinary incontinence, saddle anesthesia, paresthesia of the bilateral LE, lower back pain at the present time, edema, rash, or dizziness. Pt has a PMHx of psoriatic arthritis in the bilateral LE and ankles. Pt denies any PSHx. Allergies noted. On exam, positive cross leg raise on the right lateralizing to the left. In the ED course, pt was given hydrocodone 1 tab PO, ketorolac 60 mg IM, lidocaine patch 1 patch TRANSDERMAL, and prednisone 60 mg PO. Patient will be discharged with a diagnosis of sciatica and prescription for Lidocaine patch. Follow up with [facility] in 2-3 days. I lower extremity strength is intact bilaterally, there is no saddle paresthesia or urinary or stool incontinence. I do not suspect cauda equina syndrome. - Diagnoses Provider Diagnoses: Sciatica Discharge ED - Sign-Out/Discharge Documenting (check all that apply): Patient Departure - Discharge - Discharge Plan Condition: Stable Disposition: HOME Prescriptions: HYDROcodone/ACETAMIN 5-325 MG* [Mar Lin 5-325 TAB*] 1 tab PO Q6H PRN #15 tab MDD 4 PRN Reason: Pain - Severe Lidocaine PATCH 5%* [Lidoderm 5% Patch*] 1 patch TRANSDERM DAILY #14 patch Naproxen TAB* [Naprosyn 250 mg TAB*] 500 mg PO Q8H PRN #30 tab PRN Reason: Pain - Moderate To Severe predniSONE TAB* [Deltasone TAB*] 50 mg PO DAILY #4 tab Patient Education Materials: Sciatica (ED) Forms: *Work Release Referrals: [facility] [Outside] Additional Instructions: Follow up with [facility] in 2-3 days. RETURN TO THE EMERGENCY DEPARTMENT FOR CHANGING OR WORSENING SYMPTOMS. - Billing Disposition and Condition Condition: STABLE Disposition: Home - Attestation Statements Document Initiated by Scribe: Yes Documenting Scribe: Grace Black Provider For Whom Scribe is Documenting (Include Credential): Brendon Starkey MD Scribe Attestation: Grace Cruz scribed for Brendon Starkey MD on 01/09/19 at 0725. Scribe Documentation Reviewed: Yes Provider Attestation: The documentation as recorded by the Grace ascencio accurately reflects the service I personally performed and the decisions made by Brendon shea MD Status of Scribe Document: Viewed
[2019-01-06] MEDS ORDERED: Lidocaine Patch REMOVE* 1 NOTE MISC SCH (21:00)
== END 2019-01-06 09:35 | disposition home or self-care (01) ==
LOC: ED 08:47
DX: M54.30 Sciatica, unspecified side (principal); F17.200 Nicotine dependence, unspecified, uncomplicated
CPT/HCPCS: 96372; 99282; A9270-GY; J1885; J7512

== ENCOUNTER 2019-03-25 09:58 | Emergency (ER) | payer SELFPAY ==
[2019-03-25 10:05] VITALS: BP 124/87
--- NOTE | 2019-03-25 10:48 | UC ---
FLU HPI - HPI Summary HPI Summary: 28yo male presenting with sore throat, dry cough, and body aches x4 days. Also notes a couple episodes of vomiting over the past 2 days. States he has no appetite but is able to keep down water. Denies abd pain. Notes subjective fevers. Notes some nasal congestion. Denies taking anything for symptom relief. States he has been exposed to both flu and strep. - History of Current Complaint Chief Complaint: UCGeneralIllness Stated Complaint: FLU LIKE SYMPTOMS Hx Obtained From: Patient Pain Intensity: 4 Pain Scale Used: 0-10 Numeric - Allergy/Home Medications Allergies/Adverse Reactions: Allergies Allergy/AdvReac Type Severity Reaction Status Date / Time No Known Allergies Allergy Verified 03/25/19 10:05 Home Medications: Home Medications Aspirin [Aleida Advanced] 1 tab PO BID 03/25/19 [History Confirmed 03/25/19] PMH/Surg Hx/FS Hx/Imm Hx Previously Healthy: Yes - Surgical History Surgical History: None Surgery Procedure, Year, and Place: NONE - Family History Known Family History: Positive: Diabetes - grandfather - Social History Alcohol Use: None Substance Use Type: Marijuana Substance Use Comment - Amount & Last Used: twice daily Smoking Status (MU): Former Smoker Amount Used/How Often: 3/4 PPD Length of Time of Smoking/Using Tobacco: Since Age 19 Have You Smoked in the Last Year: Yes Household Exposure Type: Cigarettes Review of Systems All Other Systems Reviewed And Are Negative: Yes Constitutional: Positive: Fever, Chills, Fatigue ENT: Positive: Sore Throat, Sinus Congestion Respiratory: Positive: Cough - nonproductive. Negative: Shortness Of Breath Cardiovascular: Positive: Negative Gastrointestinal: Positive: Negative, Vomiting. Negative: Abdominal Pain, Diarrhea, Nausea Musculoskeletal: Positive: Myalgia Neurological: Positive: Headache Physical Exam Triage Information Reviewed: Yes Appearance: Well-Appearing, No Pain Distress, Well-Nourished Vital Signs: Initial Vital Signs Temp 99 F 03/25/19 10:02 Pulse 102 03/25/19 10:02 Resp 20 03/25/19 10:02 BP 124/87 03/25/19 10:02 Pulse Ox 100 03/25/19 10:02 Lab Results 03/25/19 03/25/19 Range/Units 10:36 10:44 Influenza A (Rapid) Negative (Negative) Influenza B (Rapid) Negative (Negative) Group A Strep Rapid Positive A (Negative) Vital Signs Reviewed: Yes Eyes: Positive: Conjunctiva Clear ENT: Positive: Hearing grossly normal, Pharyngeal erythema, Nasal congestion, TMs normal, Tonsillar swelling, Uvula midline. Negative: Tonsillar exudate, Trismus, Muffled voice, Hoarse voice, Sinus tenderness Neck: Positive: Supple, Nontender, Enlarged Nodes @ - tonsillar Respiratory Exam: Normal Respiratory: Positive: Lungs clear, Normal breath sounds, No respiratory distress Cardiovascular Exam: Normal Cardiovascular: Positive: RRR Neurological: Positive: Alert Psychological: Positive: Age Appropriate Behavior Flu Course/Dx - Course Course Of Treatment: Positive rapid strep. I treated patient with penicillin and instructed to continue with symptomatic treatment. Instructed follow-up with PCP or [facility] if symptoms persist. Patient voiced understanding and agree with treatment plan. - Differential Dx/Diagnosis Provider Diagnosis: Strep pharyngitis Discharge ED - Sign-Out/Discharge Documenting (check all that apply): Patient Departure All imaging exams completed and their final reports reviewed: No Studies - Discharge Plan Condition: Stable Disposition: HOME Prescriptions: Penicillin VK 500 MG TAB(NF) [Penicillin VK 500 mg Tab] 500 mg PO BID #20 tab Patient Education Materials: Strep Throat (ED) Forms: *Work Release Referrals: [facility] [Outside] - If Needed [facility] [Outside] - If Needed Additional Instructions: As discussed, you tested positive for strep throat today. Take penicillin as prescribed. You may take ibuprofen and/or tylenol as directed for fever and pain relief. You may use over the counter throat sprays or lozenges for symptomatic relief. Get plenty of rest and fluids. Follow up with your primary care provider or one of the referrals listed below if symptoms do not resolve within 7-10 days. - Billing Disposition and Condition Condition: STABLE Disposition: Home - Attestation Statements Provider Attestation: This patient was not seen by me I was available for consult Chart reviewed GABY
[2019-03-25 10:55] LABS: Influenza A Molecular NEGATIVE (Negative); Influenza B Molecular NEGATIVE (Negative)
== END 2019-03-25 11:15 | disposition home or self-care (01) ==
LOC: UCEAST 09:58
DX: J02.0 Streptococcal pharyngitis (principal); Z87.891 Personal history of nicotine dependence; Z79.82 Long term (current) use of aspirin
CPT/HCPCS: 87651; 99212; G0463

== ENCOUNTER 2019-04-18 18:16 | Emergency (ER) | payer SELFPAY ==
[2019-04-18 18:52] VITALS: BP 122/75
[2019-04-18 19:59] LABS: Influenza A Molecular Negative (Negative); Influenza B Molecular Negative (Negative)
--- NOTE | 2019-04-18 20:09 | UC ---
Throat Pain/Nasal [place] HPI - HPI Summary HPI Summary: One day hx of sore throat, dysphagia, no fever, occasional cough. His girlfriend was diagnosed with strep today. Small amount of emesis x 1 this morning, decreased appetite, drinking well. - History of Current Complaint Chief Complaint: UCRespiratory Stated Complaint: THROAT COMPLAINT Time Seen by Provider: 04/18/19 19:19 Hx Obtained From: Patient Onset/Duration: Sudden Onset Pain Intensity: 3 Cough: Nonproductive Associated Signs & Symptoms: Positive: Dysphagia - Epiglottits Risk Factors Epiglottis Risk Factors: Negative - Allergies/Home Medications Allergies/Adverse Reactions: Allergies Allergy/AdvReac Type Severity Reaction Status Date / Time No Known Allergies Allergy Verified 04/18/19 18:52 Home Medications: Home Medications Acetaminophen [Tylenol Extra Strength] 1,000 mg PO ONCE PRN 04/18/19 [History Confirmed 04/18/19] PMH/Surg Hx/FS Hx/Imm Hx - Additional Past Medical History Additional PMH: psoriasis Previously Healthy: Yes - Surgical History Surgical History: None Surgery Procedure, Year, and Place: NONE - Family History Known Family History: Positive: Diabetes - grandfather - Social History Occupation: Employed Full-time Alcohol Use: Occasionally Substance Use Type: Marijuana Substance Use Comment - Amount & Last Used: twice daily Smoking Status (MU): Former Smoker Amount Used/How Often: 3/4 PPD Length of Time of Smoking/Using Tobacco: Since Age 19 Have You Smoked in the Last Year: Yes Household Exposure Type: Cigarettes Review of Systems All Other Systems Reviewed And Are Negative: Yes Constitutional: Positive: Fatigue Skin: Positive: Negative Eyes: Positive: Negative ENT: Positive: Sore Throat, Nasal Discharge Respiratory: Positive: Cough Cardiovascular: Positive: Negative Gastrointestinal: Positive: Negative Genitourinary: Positive: Negative Motor: Positive: Negative Neurovascular: Positive: Negative Musculoskeletal: Positive: Negative Neurological: Positive: Negative Psychological: Positive: Negative Is Patient Immunocompromised?: No Physical Exam Triage Information Reviewed: Yes Appearance: Ill-Appearing - looks fatigued Vital Signs: Initial Vital Signs Temp 98.4 F 04/18/19 18:48 Pulse 98 04/18/19 18:48 Resp 16 04/18/19 18:48 BP 122/75 04/18/19 18:48 Pulse Ox 100 04/18/19 18:48 ENT: Positive: Pharyngeal erythema, TMs normal. Negative: Tonsillar swelling, Tonsillar exudate Neck: Positive: Supple, Nontender, No Lymphadenopathy Respiratory: Positive: Lungs clear, Normal breath sounds, No respiratory distress Cardiovascular: Positive: RRR, No Murmur Musculoskeletal Exam: Normal Neurological Exam: Normal Psychological Exam: Normal Skin Exam: Other - psoriatic rash both ears and scalp. Diagnostics - Laboratory Lab Results: flu and rapid strep negative. Throat Pain/Nasal Course/Dx - Course Course Of Treatment: symptomatic treatment of phayrngitis. - Differential Dx/Diagnosis Differential Diagnosis/HQI/PQRI: Influenza, Pharyngitis, Tonsillitis, URI Provider Diagnosis: Pharyngitis Discharge ED - Sign-Out/Discharge Documenting (check all that apply): Patient Departure All imaging exams completed and their final reports reviewed: No Studies - Discharge Plan Condition: Stable Disposition: HOME Patient Education Materials: Pharyngitis (ED) Forms: *Work Release Referrals: No Primary Care Phys,NOPCP [Primary Care Provider] - Additional Instructions: Strep and flu testing were negative. Use ibuprofen 600mg 3 or 4 times per day for relief of pain, and gargle with warm water and salt to relieve symptoms. Follow up if you develop fever or worsening cough. - Billing Disposition and Condition Condition: STABLE Disposition: Home
== END 2019-04-18 20:28 | disposition home or self-care (01) ==
LOC: UCEAST 18:16
DX: J02.9 Acute pharyngitis, unspecified (principal); L40.9 Psoriasis, unspecified; R53.83 Other fatigue; R09.81 Nasal congestion; R11.10 Vomiting, unspecified; Z87.891 Personal history of nicotine dependence
CPT/HCPCS: 87651; 99211; G0463